=== PATIENT | male | born 1990 | race Caucasian/White ===

== ENCOUNTER 2018-02-19 18:48 | Emergency (ER) | payer MEDICARE ==
[~2018-02-19] VITALS: Ht 167.6 cm; Wt 101.4 kg
[2018-02-19 19:07] VITALS: BP 133/79; Ht 167.6 cm; Wt 101.4 kg
[2018-02-19] MEDS ORDERED: NORCO 7.5/325 T1 TA1 PO (20:53)
== END 2018-02-19 21:15 | disposition home or self-care (01) ==
LOC: D.ER 18:48 → EDBD 18:48 → D.ER 21:15
DX: S62.306A Unspecified fracture of fifth metacarpal bone, right hand, initial encounter for closed fracture (principal); W20.8XXA Other cause of strike by thrown, projected or falling object, initial encounter; Y93.89 Activity, other specified; Y92.89 Other specified places as the place of occurrence of the external cause

== ENCOUNTER 2019-09-02 10:21 | Emergency (ER) | payer SELFPAY ==
[~2019-09-02] VITALS: Ht 167.6 cm; Wt 114.5 kg
[~2019-09-02 10:21] MED LIST: NORCO 7.5/325 T1 TA1 PO
[2019-09-02 10:33] VITALS: BP 139/74; Ht 167.6 cm; Wt 114.5 kg
[2019-09-02] MEDS ORDERED: TAMIFLU6 MG/1 ML PO (12:11)
[2019-09-02] MEDS ORDERED: GUAIFENESI100 MG/5 M PO (12:11)
[2019-09-02] MEDS ORDERED: IBUPROFEN100 MG/5 M PO (12:14)
== END 2019-09-02 12:33 | disposition home or self-care (01) ==
LOC: D.ER 10:21
DX: J11.1 Influenza due to unidentified influenza virus with other respiratory manifestations (principal)